=== PATIENT | male | born 1965 | race Hispanic/Latino ===

== ENCOUNTER → 2017-08-10 | Outpatient (CLI) | payer BC | END | disposition home or self-care (01) | LOC: GMAB 11:02 | PROVIDERS: ATTEND Family Medicine | DX: M25.50 Pain in unspecified joint (principal) ==

== ENCOUNTER → 2019-12-26 | Outpatient (CLI) | payer BC | LOC: GMAE 10:41 | PROVIDERS: ATTEND Family Medicine | DX: Z00.00 Encounter for general adult medical examination without abnormal findings (principal) ==

== ENCOUNTER 2020-09-10 00:15 | Emergency (ER) | payer BC ==
[2020-09-10] MEDS ORDERED: ONDANSETRON INJ 4 MG/2 ML VIAL IV ONE (00:33)
[2020-09-10] MEDS ORDERED: GLUCAGON INJ 1 MG VIAL IV ONE (00:34)
[2020-09-10] MEDS ORDERED: LIDOCAINE HCL 2% (MOUTH-THROAT) 15 ML UD MT ONE (00:36)
--- NOTE | 2020-09-10 00:36 | ED.PDOC ---
History of Present Illness - General Time Seen by Provider: 09/10/20 00:17 Source: RN notes reviewed, Vital Signs reviewed Additional Information: Male patient, presents to the ER because of the sensation of having something in the back of his throat, patient stated that he woke up this morning feeling with a weird sensation in the back of his throat, he said that he had tacos yesterday and he thinks that he could have the tail of a shrimp stuck behind his throat, p atient denies any nausea vomiting able to speak in long complete sentences Patient was able to speak with his doctor, and they promptly as discussed lidocaine, he said that he numb the back of his throat, but he still feels the sensation of some foreign body there he is not entirely sure what it is - History of Present Illness Timing/Duration: unsure Improving Factors: nothing Worsening Factors: nothing Associated Symptoms: denies symptoms Allergies/Adverse Reactions: Allergies NO KNOWN ALLERGY Allergy (Verified 06/11/16 04:15) Home Medications: Ambulatory Orders Aspirin [Rosa Low Dose] 81 mg PO DAILY 06/11/16 Famotidine 20 mg PO DAILY #30 tab 06/11/16 Isosorbide Mononitrate [Isosorbide Mononitrate ER] 30 mg PO DAILY 06/11/16 Lisinopril 20 mg PO DAILY 06/11/16 Metoprolol Succinate [Metoprolol Succinate ER] 50 mg PO DAILY 06/11/16 Review of Systems - Review of Systems Constitutional: States: no symptoms reported EENTM: States: no symptoms reported Respiratory: States: no symptoms reported Cardiology: States: no symptoms reported Genitourinary: States: no symptoms reported Musculoskeletal: States: no symptoms reported Skin: States: no symptoms reported Neurological: States: no symptoms reported Endocrine: States: no symptoms reported Hematologic/Lymphatic: States: no symptoms reported Past Medical History (General) - Patient Medical History Hx Seizures: No Hx Stroke: No Hx Dementia: No Hx Asthma: No Hx of COPD: No Hx Cardiac Disorders: Yes Hx Congestive Heart Failure: No Hx Pacemaker: No Hx Hypertension: Yes Hx Thyroid Disease: No Hx Diabetes: No Hx Gastroesophageal Reflux: Yes Hx Renal Disease: No Hx Cancer: No Hx of HIV: No Hx Hepatitis C: No Hx MRSA: No - Vaccination History Hx Tetanus, Diphtheria Vaccination: No Hx Influenza Vaccination: Yes Hx Pneumococcal Vaccination: No - Social History Hx Tobacco Use: No Hx Chewing Tobacco Use: No Hx Alcohol Use: Yes - occ Hx Substance Use: No Hx Substance Use Treatment: No Hx Depression: No Hx Physical Abuse: No Hx Emotional Abuse: No Hx Suspected Abuse: No - Female History Patient : No Family Medical History - Family History Mother Family History: Unknown Physical Exam - Physical Exam General Appearance: Well Developed, Well Groomed, Well Hydrated, Well Nourished Ears, Nose, Throat: hearing grossly normal, normal ENT inspection, normal pharynx Neck: non-tender, full range of motion, supple, normal inspection Respiratory: chest non-tender, lungs clear, normal breath sounds, no respiratory distress, no accessory muscle use Cardiovascular/Chest: normal peripheral pulses, regular rate, rhythm, no edema, no gallop, no JVD, no murmur Gastrointestinal/Abdominal: normal bowel sounds, non tender, soft, no organomegaly, no pulsatile mass Back Exam: normal inspection, no CVA tenderness, no vertebral tenderness Extremity: normal range of motion, non-tender, normal inspection, no pedal edema, no calf tenderness 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, no motor/sensory deficits, alert, normal mood/affect, oriented x 3 Skin Exam: normal color, warm/dry Lymphatic: no adenopathy Progress - Progress Progress: using the glidescope looked inside the patient's mouth I did not see any foreign bodies, I was able to see all the way into the vocal cords and at least not see any foreign particles, I did give the patient some easy gas, glucagon and Zofran, patient is able to tolerate by mouth he feels a lot better no nausea vomiting able to speak in long complete sentences, and no evidence of any obstruction patient does have an ENT that is going to try to see as well as possible, but not at the moment patient is holding fluids down no drooling no vomiting so he will be discharged home 09/10/20 01:28 Departure - Departure Clinical Impression: Superficial foreign body of throat, initial encounter Disposition: Discharge to Home or Self Care Condition: Good Instructions: Foreign Body, Swallowed, Adult Diet: full liquid diet Referrals: BOB ALICEA MD [Primary Care Provider] - 1-2 Weeks Home Medications: Ambulatory Orders Aspirin [Rosa Low Dose] 81 mg PO DAILY 06/11/16 Famotidine 20 mg PO DAILY #30 tab 06/11/16 Isosorbide Mononitrate [Isosorbide Mononitrate ER] 30 mg PO DAILY 06/11/16 Lisinopril 20 mg PO DAILY 06/11/16 Metoprolol Succinate [Metoprolol Succinate ER] 50 mg PO DAILY 06/11/16 Comments: follow up with ENT and or Gastroenterology as soon as possible
[2020-09-10 02:35] VITALS: TEMP 97.9
[2020-09-10 02:42] VITALS: BP 142/88
[2020-09-10 02:44] VITALS: O2SAT 98
== END 2020-09-10 01:45 | disposition home or self-care (01) ==
LOC: ER 00:15
DX: T17.208A Unspecified foreign body in pharynx causing other injury, initial encounter (principal); K21.9 Gastro-esophageal reflux disease without esophagitis; I51.9 Heart disease, unspecified; I10 Essential (primary) hypertension; Z79.82 Long term (current) use of aspirin; Z79.899 Other long term (current) drug therapy
CPT/HCPCS: J1610; J2405

== ENCOUNTER 2020-09-24 20:27 | Emergency (ER) | payer BC ==
[2020-09-24 20:49] VITALS: TEMP 97.8; O2SAT 95
[2020-09-24] MEDS ORDERED: ONDANSETRON ODT 8 MG TAB SL ONE (20:53)
[2020-09-24] MEDS ORDERED: GLUCAGON INJ 1 MG VIAL SUBCU ONE (20:53)
[2020-09-24] MEDS ORDERED: ALUM & MAG HYDROX-SIMETHICONE 30 ML, LIDOCAINE VISCOUS 2% 15 ML PO ONE ×2 (20:54)
--- NOTE | 2020-09-24 22:59 | ED.PDOC ---
History of Present Illness - General Chief Complaint: General Time Seen by Provider: 09/24/20 20:51 Source: patient Exam Limitations: no limitations - History of Present Illness Initial Comments: The patient is a 55-year-old male presented emergency room secondary to having the sensation of something caught in the left upper posterior oropharynx to upper esophagus area. The patient reports that he has had this happen multiple times in the past secondary to a scarring issue from the previous tonsillectomy. He does see a developmental psychologist. He had this issue once before 2 weeks ago. He reports that he was eating a tortilla when this happened. No vomiting. No shortness of breath. No drooling. He is able to tolerate liquids past it. Timing/Duration: 1-3 hours Severity: mild Improving Factors: nothing Worsening Factors: nothing Associated Symptoms: denies symptoms Allergies/Adverse Reactions: Allergies NO KNOWN ALLERGY Allergy (Verified 06/11/16 04:15) Home Medications: Ambulatory Orders Aspirin [Rosa Low Dose] 81 mg PO DAILY 06/11/16 Famotidine 20 mg PO DAILY #30 tab 06/11/16 Isosorbide Mononitrate [Isosorbide Mononitrate ER] 30 mg PO DAILY 06/11/16 Lisinopril 20 mg PO DAILY 06/11/16 Metoprolol Succinate [Metoprolol Succinate ER] 50 mg PO DAILY 06/11/16 Review of Systems - Review of Systems Constitutional: States: no symptoms reported EENTM: States: no symptoms reported, see HPI Respiratory: States: no symptoms reported Cardiology: States: no symptoms reported Gastrointestinal/Abdominal: States: see HPI Genitourinary: States: no symptoms reported Musculoskeletal: States: no symptoms reported Skin: States: no symptoms reported Neurological: States: no symptoms reported Endocrine: States: no symptoms reported All other Systems: No Change from Baseline Past Medical History (General) - Patient Medical History Hx Seizures: No Hx Stroke: No Hx Dementia: No Hx Asthma: No Hx of COPD: No Hx Cardiac Disorders: No Hx Congestive Heart Failure: No Hx Pacemaker: No Hx Hypertension: Yes Hx Thyroid Disease: No Hx Diabetes: No Hx Gastroesophageal Reflux: No Hx Renal Disease: No Hx Cancer: No Hx of HIV: No Hx Hepatitis C: No Hx MRSA: No Surgical History: tonsillectomy - Vaccination History Hx Tetanus, Diphtheria Vaccination: Yes Hx Influenza Vaccination: Yes Hx Pneumococcal Vaccination: Yes - Social History Hx Tobacco Use: No Hx Chewing Tobacco Use: No Hx Alcohol Use: Yes Hx Substance Use: No Hx Substance Use Treatment: No Hx Depression: No Feels Threatened In Home Enviroment: No Feels Threatened In a Relationship: No Hx Physical Abuse: No Hx Emotional Abuse: No Hx Suspected Abuse: No - Female History Patient is a Female of Child Bearing Age (10 -59 yrs old): No Patient : No - Triage Comment ED Triage Comment: The patient walked from the ER waiting room to ER nino bed 1. He did not apper in distress and denied difficulty breathing. He complained of having tortilla stuck in his esophogus and unable to work it down. He had no other noted complaints during assissment. Family Medical History - Family History Mother Family History: Unknown Physical Exam - Physical Exam General Appearance: Alert, Anxious, No apparent distress Eye Exam: bilateral normal Ears, Nose, Throat: hearing grossly normal, normal ENT inspection, normal pharynx Neck: non-tender, full range of motion, supple Respiratory: lungs clear, normal breath sounds, no respiratory distress, no accessory muscle use Cardiovascular/Chest: normal peripheral pulses, regular rate, rhythm, no edema Peripheral Pulses: radial,right: 2+, radial,left: 2+ Gastrointestinal/Abdominal: non tender, soft Rectal Exam: deferred Extremity: normal range of motion, normal capillary refill 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 This is due to chronic scarring according to him. He was able to pass it with a GI cocktail Zofran and glucagon. We did look afterwards with a nasolaryngoscope to help confirm passage at least passed the hypopharynx area. He does need to keep follow-up with the developmental psychologist. ER warnings are given. memo snow [id number] Departure - Departure Clinical Impression: Food impaction of esophagus Qualifiers: Encounter type: initial encounter Qualified Code(s): T18.128A - Food in esophagus causing other injury, initial encounter Disposition: Discharge to Home or Self Care Condition: Fair Departure Forms: ED Discharge - Pt. Copy, Patient Portal Self Enrollment Diet: regular diet Activity: increase activity as tolerated Referrals: BOB ALICEA MD [Primary Care Provider] - 1-2 Weeks Home Medications: Ambulatory Orders Aspirin [Rosa Low Dose] 81 mg PO DAILY 06/11/16 Famotidine 20 mg PO DAILY #30 tab 06/11/16 Isosorbide Mononitrate [Isosorbide Mononitrate ER] 30 mg PO DAILY 06/11/16 Lisinopril 20 mg PO DAILY 06/11/16 Metoprolol Succinate [Metoprolol Succinate ER] 50 mg PO DAILY 06/11/16 Additional Instructions: The patient is a 55-year-old male presented emergency room secondary to getting a food bolus stuck in the hypopharyngeal to upper esophageal region. This is due to chronic scarring according to him. He was able to pass it with a GI cocktail Zofran and glucagon. We did look afterwards with a nasolaryngoscope to help confirm passage at least passed the hypopharynx area. He does need to keep follow-up with the developmental psychologist. ER warnings are given.
[2020-09-24 23:10] VITALS: BP 148/94
== END 2020-09-24 23:05 | disposition home or self-care (01) ==
LOC: ER 20:27
DX: T18.128A Food in esophagus causing other injury, initial encounter (principal); I10 Essential (primary) hypertension; Z79.82 Long term (current) use of aspirin; Z79.899 Other long term (current) drug therapy